=== PATIENT | male | born 1995 | race Caucasian/White ===

== ENCOUNTER 2016-12-30 15:25 | Outpatient (CLI) | payer OTHER | END 2016-12-30 15:26 | disposition critical access hospital (66) | LOC: EMS 15:25 | PROVIDERS: ATTEND Surgery | DX: R41.82 Altered mental status, unspecified (principal) | CPT/HCPCS: A0425; A0429 ==

== ENCOUNTER 2016-12-30 15:40 | Emergency (ER) | payer OTHER ==
[2016-12-30] MEDS ORDERED: HALOPERIDOL 5 MG/ML VIAL IVP ONE (15:45)
[2016-12-30] MEDS ORDERED: MIDAZOLAM 2 MG/2 ML VIAL IVP STA (15:45)
[2016-12-30] MEDS ORDERED: SODIUM CHLORIDE 0.9% 2,000 ML IV ONE (15:45)
[2016-12-30] MEDS ORDERED: MIDAZOLAM 2 MG/2 ML VIAL ONE (15:49)
[2016-12-30] MEDS ORDERED: HALOPERIDOL 5 MG/ML VIAL ONE (15:50)
--- NOTE | 2016-12-30 15:52 | ED Physician Documentation ---
History of Present Illness - Stated complaint Stated Complaint: AMS - Chief complaint Chief Complaint: General - History obtained from History obtained from: Patient, EMS - History of Present Illness Timing: Other (21-year-old gentleman brought in by ambulance, admits to LSD use , and is "high as fuck." (His words). Denies other drugs. Was acting bizarrely and running around the neighborhood naked.) Review of Systems Unable to obtain: Uncooperative PD PAST MEDICAL HISTORY - Past Medical History Past Medical History: Yes Neuro: Other (meningitis) Psych: Depression, Anxiety - Past Surgical History Past Surgical History: No - Present Medications Home Medications: Ambulatory Orders Medication Instructions Recorded Confirmed No Known Home Medications [No 11/22/14 11/22/14 Known Home Medications] - Allergies Allergies/Adverse Reactions: Allergies Allergy/AdvReac Type Severity Reaction Status Date / Time ibuprofen Allergy Unknown Verified 03/28/16 16:41 - Social History Does the pt smoke?: No Smoking Status: Never smoker Does the pt drink ETOH?: No Does the pt have substance abuse?: No - Immunizations Immunizations are current?: No Immunizations: Other immun not current PD ED PE NORMAL - Vitals Vital signs reviewed: Yes - General General: Other (Alert, will say his name, otherwise answering questions inappropriately. Occasionally yelling and swearing and belligerent. Not cooperative with exam.) - HEENT HEENT: Moist mucous membranes, Other (dilated pupils) - Neck Neck: Supple, no meningeal sign, No bony TTP - Cardiac Cardiac: Other (tachycardic) - Respiratory Respiratory: No respiratory distress, Clear bilaterally - Abdomen Abdomen: Soft, Non tender - Derm Derm: Normal color, Warm and dry - Extremities Extremities: Normal ROM s pain, No edema - Neuro Neuro: No motor deficit, No sensory deficit Results - Vitals Vitals: Vital Signs - 24 hr 12/30/16 12/30/16 12/30/16 15:38 16:47 17:56 Temperature 35.7 C L Heart Rate 114 H 117 H 101 H Respiratory 20 16 14 Rate Blood Pressure 125/83 H 139/89 H 125/70 O2 Saturation 100 100 98 12/30/16 12/30/16 12/30/16 19:26 20:17 20:57 Temperature 36.7 C Heart Rate 92 101 H 87 Respiratory 14 20 18 Rate Blood Pressure 119/51 L 118/53 L 102/54 L O2 Saturation 95 99 100 Oxygen O2 Source Room air - EKG (time done) 1557 Rate: Rate (enter#) (114) Rhythm: Sinus tachycardia, SVT Baring: Normal Intervals: Normal OH QRS: Normal Ischemia: Non specific changes Computer interpretation: Agree with computer - Labs Labs: Laboratory Tests 12/30/16 12/30/16 15:50 16:25 WBC 23.6 H RBC 5.91 Hgb 17.1 Hct 52.1 H MCV 88.0 MCH 28.9 MCHC 32.8 RDW 13.5 Plt Count 261 MPV 8.8 Neut # Not Reportable Lymph # Not Reportable Kimble # Not Reportable Eos # Not Reportable Baso # Not Reportable Absolute Nucleated RBC Not Reportable Band Neuts % (Manual) 3 Neutrophils # (Manual) 20.8 H Lymphocytes # (Manual) 2.6 Monocytes # (Manual) 0.2 Nucleated RBCs Not Reportable Platelet Estimate NORMAL (130-450,000) RBC Morph Micro Appear NORMAL APPEARANCE Sodium 141 Potassium 3.3 L Chloride 102 Carbon Dioxide 28 Anion Gap 11.0 BUN 14 Creatinine 1.1 Estimated GFR (MDRD) 85 L Glucose 113 H Calcium 10.2 Total Bilirubin 1.1 H AST 36 ALT 14 Alkaline Phosphatase 70 Total Protein 8.5 H Albumin 5.5 Globulin 3.0 Albumin/Globulin Ratio 1.8 Lipase 21 L Salicylates < 6.0 Acetaminophen < 10 L Ethyl Alcohol < 5.0 PD MEDICAL DECISION MAKING - ED course ED course: On arrival he was confused, belligerent, and combative. He required divided doses of Ativan and Haldol to calm him down for patient and staff safety. He was given 2 fluid boluses. Over the course of several hours she became cogent, ate and drank without difficulty and was ambulating and not confused. His parents came and picked him up. Departure - Departure Disposition: 01 Home, Self Care Clinical Impression: Drug overdose Qualifiers: Encounter type: initial encounter Injury intent: undetermined intent Qualified Code(s): T50.904A - Poisoning by unspecified drugs, medicaments and biological substances, undetermined, initial encounter Condition: Good Record reviewed to determine appropriate education?: Yes Instructions: ED Drug Abuse General Comments: Call your doctor to arrange a follow up appointment. Make the next available appointment. In the interim return anytime if worse or if new symptoms develop.
[2016-12-30 16:02] LABS: BASOPHILS % (AUTO) 0.4 %; HCT - HEMATOCRIT 52.1 % (42.0-52.0); HGB - HEMOGLOBIN 17.1 g/dL (14.0-18.0); LYMPHOCYTES % (AUTO) 8.8 %; MEAN CORPUSCULAR HEMOGLOBIN 28.9 pg (27.0-31.0); MEAN CORPUSCULAR HGB CONC 32.8 g/dL (32.0-36.0); MEAN PLATELET VOLUME 8.8 fL (7.4-11.4); MONOCYTES % (AUTO) 4.2 %; NEUTROPHILS % (AUTO) 85.6 %; RED BLOOD COUNT 5.91 10^6/uL (4.70-6.10); RED CELL DISTRIBUTION WIDTH 13.5 % (12.0-15.0); UNCORRECTED WHITE BLOOD COUNT 23.6 x10^3/uL; WHITE BLOOD COUNT 23.6 x10^3/uL (4.8-10.8)
[2016-12-30] MEDS ORDERED: LORazepam 2 MG/ML SYRINGE IVP STA (16:56)
[2016-12-30] MEDS ORDERED: LORazepam 2 MG/ML SYRINGE ONE (16:56)
[2016-12-30 16:57] LABS: ALBUMIN/GLOBULIN RATIO 1.8 (1.0-2.2); BUN - BLOOD UREA NITROGEN 14 mg/dL (6-20); CALCIUM 10.2 mg/dL (8.5-10.3); CARBON DIOXIDE - CO2 28 mmol/L (21-32); CHLORIDE 102 mmol/L (101-111); CREATININE 1.1 mg/dL (0.6-1.2); GFR - MDRD 85 (>89); GLUCOSE 113 mg/dL (70-100); LIPASE 21 U/L (22-51); SALICYLATE < 6.0 mg/dL; SODIUM 141 mmol/L (135-145); TOTAL PROTEIN 8.5 g/dL (6.7-8.2)
[2016-12-30 16:59] LABS: BILIRUBIN,TOTAL 1.1 mg/dL (0.2-1.0); POTASSIUM 3.3 mmol/L (3.5-5.0)
[2016-12-30 17:00] LABS: ACETAMINOPHEN < 10 ug/mL (10-30)
[2016-12-30 17:06] LABS: BAND NEUTROPHILS % (MANUAL) 3 %; LYMPHOCYTES % (MANUAL) 11 %; NEUTROPHILS % (MANUAL) 85 %
[2016-12-30 17:07] LABS: NP AUTO DIFFERENTIAL? YES; NP MAN DIFFERENTIAL? NO; PLATELET ESTIMATE, MANUAL NORMAL (130-450,000) (NORMAL)
[2016-12-30 20:58] VITALS: BP 102/54
== END 2016-12-30 21:10 | disposition home or self-care (01) ==
LOC: ED 15:40
DX: T40.8X1A Poisoning by lysergide [LSD], accidental (unintentional), initial encounter (principal); R41.82 Altered mental status, unspecified; F91.8 Other conduct disorders; F16.988 Hallucinogen use, unspecified with other hallucinogen-induced disorder
CPT/HCPCS: 36415; 80053; 80307; 80320; 80329; 83690; 85025; 93005; 93010; 96374; 96375; 99284; 99285; J2060

== ENCOUNTER 2017-10-06 17:43 | Emergency (ER) | payer MEDICAID, OTHER ==
[2017-10-06 18:03] VITALS: BP 110/63
--- NOTE | 2017-10-06 19:07 | ED Physician Documentation ---
PD HPI URI - Stated complaint Stated Complaint: SORE THROAT - Chief complaint Chief Complaint: Heent - History obtained from History obtained from: Patient - History of Present Illness Timing - onset: How many days ago (several) Timing duration: Days Timing details: Gradual onset Associated symptoms: Fever, Sore throat, Swollen nodes. No: Nasal congestion, Rhinorrhea, Dry cough Similar symptoms before: Has not had sx before Recently seen: Not recently seen Review of Systems Constitutional: reports: Fever, Chills, Myalgias Throat: reports: Sore throat Respiratory: denies: Cough PD PAST MEDICAL HISTORY - Past Medical History Past Medical History: Yes Neuro: Other Psych: Depression, Anxiety - Past Surgical History Past Surgical History: No - Present Medications Home Medications: Ambulatory Orders Medication Instructions Recorded Confirmed Cephalexin [Keflex] 500 mg PO QID #24 capsule 10/06/17 Dexamethasone [Decadron] 4 mg PO DAILY #5 tablet 10/06/17 - Allergies Allergies/Adverse Reactions: Allergies Allergy/AdvReac Type Severity Reaction Status Date / Time ibuprofen Allergy Unknown Verified 03/28/16 16:41 - Social History Does the pt smoke?: No Smoking Status: Never smoker Does the pt drink ETOH?: No Does the pt have substance abuse?: No - Immunizations Immunizations are current?: No Immunizations: Other immun not current - POLST Patient has POLST: No PD ED PE NORMAL - Vitals Vital signs reviewed: Yes - General General: Alert and oriented X 3, Well developed/nourished - HEENT HEENT: Ears normal. No: Pharynx benign (exudative changes with swelling. no peritonsillar edema) - Neck Neck: Supple, no meningeal sign, Other (anterior nodes) Results - Vitals Vitals: Oxygen O2 Source Room air - Labs Labs: Laboratory Tests 10/06/17 18:55 Group A Strep Rapid POSITIVE H PD MEDICAL DECISION MAKING - ED course Complexity details: reviewed results, considered differential, d/w patient Departure - Departure Disposition: 01 Home, Self Care Clinical Impression: Acute streptococcal pharyngitis Condition: Stable Record reviewed to determine appropriate education?: Yes Instructions: ED Strep Pharyngitis Conf Prescriptions: Cephalexin [Keflex] 500 mg PO QID #24 capsule Dexamethasone [Decadron] 4 mg PO DAILY #5 tablet Comments: Drink lots of fluids. Your strep test was positive. Cephalexin as directed for 6 days. Decadron steroid anti-inflammatory for 5 more days. Use Tylenol or hydrocodone if needed for pains. This should taper down quite a bit over the next few days. Off work tomorrow. Resume activity as able after that. Forms: Activity restrictions Discharge Date/Time: 10/06/17 20:34
[2017-10-06] MEDS ORDERED: DEXAMETHASONE 10 MG/ML VIAL PO STA (19:36)
[2017-10-06] MEDS ORDERED: ACETAMINOPHEN 325 MG TABLET PO STA (19:36)
[2017-10-06] MEDS ORDERED: cephALEXin 250 MG CAPSULE PO STA (19:36)
[2017-10-06] MEDS ORDERED: HYDROcod/ACETAM 5/325 MG TABLET PO STA (20:02)
[2017-10-06] MEDS ORDERED: HYDROcod/ACET 5/325 Prepack 6 PO STA (20:02)
[2017-10-06] MEDS ORDERED: CEPHALEXIN 250 MG Prepack 8 PO ONE (20:22)
== END 2017-10-06 20:34 | disposition home or self-care (01) ==
LOC: ED 17:43
DX: J02.0 Streptococcal pharyngitis (principal)
CPT/HCPCS: 87430; 99283; A9270

== ENCOUNTER 2022-07-18 15:55 | Outpatient (CLI) | payer MEDICAID ==
[2022-07-19 04:09] LABS: HCV AB <0.1 s/co ratio (0.0-0.9); HIV SCREEN 4TH GENERATION Non Reactive (Non Reactive)
== END 2022-07-18 15:56 | disposition home or self-care (01) ==
LOC: LAB.R 15:55
PROVIDERS: ATTEND Internal Medicine
DX: Z91.89 Other specified personal risk factors, not elsewhere classified (principal)
CPT/HCPCS: 86780; 86803; 87389